=== PATIENT | female | born 1930 | race Caucasian/White ===

== ENCOUNTER 2016-07-17 17:27 | Emergency (ER) | payer MEDICARE, OTHER ==
[~2016-07-17] VITALS: Ht 134.6 cm; Wt 63.6 kg
[~2016-07-17 17:27] MED LIST: ATEN100T PO; DULO20CA17 PO; EZET10TA3 PO; MTF1000T PO; TRAM50TA2 PO
[2016-07-17 17:40] VITALS: Ht 134.6 cm; Wt 63.6 kg
[2016-07-17] MEDS ORDERED: SOD CHLORIDE 0.9% 1,000 ML IV STA (18:07)
[2016-07-17 18:29] LABS: ADD SCAN DIFF NO
[2016-07-17] MEDS ORDERED: MECLIZINE 12.5 MG TAB PO ONE (18:30)
[2016-07-17 18:32] LABS: BASOPHILS % 0.6 % (0.0-2.0); EOSINOPHILS # 0.1 10^3/ul (0.0-0.5); EOSINOPHILS % 2.7 % (0.0-7.0); HEMATOCRIT 34.8 % (37.0-47.0); HEMOGLOBIN 11.4 g/dl (12.0-16.0); LYMPHOCYTES # 0.8 10^3/ul (0.8-2.9); LYMPHOCYTES % 15.8 % (15.0-51.0); MEAN CORPUSCULAR HEMOGLOBIN 27.5 pg (29.0-33.0); MEAN CORPUSCULAR HGB CONC 32.8 g/dl (32.0-37.0); MEAN CORPUSCULAR VOLUME 84.1 fl (82.0-101.0); MEAN PLATELET VOLUME 11.8 fl (7.4-10.4); MONOCYTE # 0.2 10^3/ul (0.3-0.9); MONOCYTES % 4.6 % (0.0-11.0); NEUTROPHILS % 75.3 % (39.0-77.0); PLATELET COUNT 230 10^3/UL (140-415); RED BLOOD COUNT 4.14 10^6/ul (4.20-5.40); RED CELL DISTRIBUTION WIDTH 13.6 % (11.5-14.5); WHITE BLOOD COUNT 5.3 10^3/ul (4.8-10.8)
[2016-07-17 18:41] LABS: CHLORIDE 102 mmol/L (97-110)
[2016-07-17 18:42] LABS: POTASSIUM 5.4 mmol/L (3.5-5.1); SODIUM 136 mmol/L (135-144)
[2016-07-17 18:44] LABS: ANION GAP 12 (8-16); CARBON DIOXIDE 27 mmol/L (21-31); CREATININE 0.84 mg/dl (0.44-1.00)
[2016-07-17 18:45] LABS: BLOOD UREA NITROGEN 23 mg/dl (7-20); CALCIUM 8.6 mg/dl (8.4-10.2); GLUCOSE 208 mg/dl (70-220)
[2016-07-17 18:54] LABS: ADD UMIC YES; URINE BILIRUBIN (Dip) NEGATIVE (NEGATIVE); URINE BLOOD (Dip) NEGATIVE (NEGATIVE); URINE COLOR LT. YELLOW (YELLOW); URINE KETONES (Dip) NEGATIVE (NEGATIVE); URINE LEUKOCYTE ESTERASE (Dip) 1+ (NEGATIVE); URINE NITRITE (Dip) NEGATIVE (NEGATIVE); URINE TOTAL PROTEIN (Dip) NEGATIVE (NEGATIVE); URINE UROBILINOGEN (Dip) 0.2 E.U./dL (0.1-1.0)
[2016-07-17 19:04] LABS: BACTERIA,URINE FEW; URINE RBCS 0-2 /HPF (0)
[2016-07-17 19:04] LABS: TROPONIN-I < 0.012 ng/ml (0.00-0.12)
[2016-07-17] MEDS ORDERED: VALS160T20 PO (19:25)
--- NOTE | 2016-07-17 19:26 | ERD ---
ER Documentation Chief Complaint Date/Time DATE: 07/17/16 TIME: 19:23 Chief Complaint DIZZINESS, NAUSEA HPI Patient is an 86-year-old female with hypertension who presents to the ER with sudden onset constant dizziness described as vertigo for the last 2 hours. Patient denies headache or diplopia denies fever, chest pain, dyspnea, or palpitations. The patient noted that her blood pressure was high at home, and checked her blood sugar and found to be normal. Patient denies previous episodes of the symptoms. Denies falls or loss of balance. ROS All systems reviewed and are negative except as per history of present illness. Medications Home Meds Active Scripts Meclizine Hcl* (Antivert*) 12.5 Mg Tab, 12.5 MG PO Q6H Y for DIZZINESS, #20 TAB Prov:TORRIE SULLIVAN 07/17/16 Reported Medications Valsartan* (Diovan*) 160 Mg Tablet, 160 MG PO DAILY, TAB 07/17/16 Duloxetine Hcl* (Duloxetine Hcl*) 20 Mg Capsule.dr, 20 MG PO DAILY, #60 08/15/15 Atenolol* (Atenolol*) 100 Mg Tablet, 150 MG PO DAILY, #135 08/15/15 Ezetimibe* (Zetia*) 10 Mg Tablet, 10 MG PO HS, TAB 08/15/15 Metformin* (Glucophage*) 1,000 Mg Tablet, 1000 MG PO BID, #60 TAB 08/15/15 Discontinued Scripts Tramadol HCl (Tramadol HCl) 50 Mg Tablet, 50 MG PO Q6 Y for PAIN, #12 TAB Prov:ANDRZEJ MA PA-C 02/03/16 Tramadol HCl (Tramadol HCl) 50 Mg Tablet, 50 MG PO Q6, #10 TAB Prov:SHINE FONSECA MD 08/15/15 Allergies Allergies: Coded Allergies: aspirin (Verified Allergy, Severe, 07/17/16) PMhx/Soc Past medical history: Hypertension, diabetes Past surgical history: None Social history: No tobacco or alcohol History of Surgery: Yes (cataract surgery) Hx Neurological Disorder: No Hx Respiratory Disorders: No Hx Cardiac Disorders: No Hx Psychiatric Problems: No Hx Miscellaneous Medical Probl: Yes (diabetes mellitus type 2, hypertension) Hx Alcohol Use: No Hx Substance Use: No Hx Tobacco Use: No Smoking Status: Unknown if ever smoked FmHx Past medical history: Hypertension, diabetes Past surgical history: Social history: Denies tobacco or alcohol Family History: No diabetes Physical Exam Vitals Vital Signs Date Time Temp Pulse Resp B/P Pulse Ox O2 Delivery O2 Flow Rate FiO2 07/17/16 17:40 97.7 69 18 177/65 100 Physical Exam Const: Alert, oriented, no acute distress Head: Atraumatic Eyes: Normal Conjunctiva ENT: Normal External Ears, Nose and Mouth. Neck: Full range of motion.. No JVD. No meningismus. Resp: Clear to auscultation bilaterally Cardio: Regular rate and rhythm, no murmurs Abd: Soft, non tender, non distended. Normal bowel sounds Skin: No petechiae or rashes Back: No midline or flank tenderness Ext: No cyanosis, or edema Neur: Awake and alert. Cranial nerves II through XII intact, no nystagmus, strength and sensation intact in 4 extremities, no pronator drift, no dysmetria. Negative Romberg Psych: Normal Mood and Affect Result Diagram: 07/17/16 1915 07/17/16 1810 Results 24 hrs Laboratory Tests Test 07/17/16 18:10 07/17/16 18:30 07/17/16 19:15 Anion Gap 12 Blood Urea Nitrogen 23mg/dl Calcium Level 8.6mg/dl Carbon Dioxide Level 27mmol/L Chloride Level 102mmol/L Creatinine 0.84mg/dl Glucose Level 208mg/dl Potassium Level 5.4mmol/L Sodium Level 136mmol/L Troponin I < 0.012ng/ml Urine Bacteria FEW Urine Bilirubin NEGATIVE Urine Clarity CLEAR Urine Color LT. YELLOW Urine Epithelial Cells FEW Urine Glucose 0.5%% Urine Hemoglobin NEGATIVE Urine Ketones NEGATIVE Urine Leukocyte Esterase 1+ Urine Microscopic RBC 0-2/HPF Urine Microscopic WBC 0-2/HPF Urine Nitrite NEGATIVE Urine Specific [place] 1.010 Urine Total Protein NEGATIVE Urine Urobilinogen 0.2 E.U./dL Urine pH 6.5 Basophils # 0.010^3/ul Basophils % 0.6% Eosinophils # 0.110^3/ul Eosinophils % 2.7% Hematocrit 34.8% Hemoglobin 11.4g/dl Lymphocytes # 0.810^3/ul Lymphocytes % 15.8% Mean Corpuscular Hemoglobin 27.5pg Mean Corpuscular Hemoglobin Concent 32.8g/dl Mean Corpuscular Volume 84.1fl Mean Platelet Volume 11.8fl Monocytes # 0.210^3/ul Monocytes % 4.6% Neutrophils # 4.010^3/ul Neutrophils % 75.3% Nucleated Red Blood Cells # 0.010^3/ul Nucleated Red Blood Cells % 0.0/100WBC Platelet Count 35096^3/UL Red Blood Count 4.1410^6/ul Red Cell Distribution Width 13.6% White Blood Count 5.310^3/ul Current Medications Medications (Trade) Dose Ordered Sig/Loulou Route PRN Reason Start Time Stop Time Status Last Admin Dose Admin Sodium Chloride (NS) 1,000 ml @ 1,000 mls/hr Q1H STAT IV 07/17/16 18:07 07/17/16 19:06 DC 07/17/16 18:23 Meclizine HCl (Antivert) 25 mg ONCE ONCE PO 07/17/16 18:30 07/17/16 18:31 DC 07/17/16 18:22 Procedures/MDM EKG: Time 1839, rate 63, normal sinus rhythm, normal axis and intervals, left atrial enlargement, no ischemic ST-T wave changes, no ectopy. MDM: 86-year-old female presents with 2 hours of dizziness described alternately as vertigo and lightheadedness, as well as sense of balance being off. Patient states symptoms are worse with standing or movement of head. Blood pressure was slightly elevated on arrival. Patient had a normal neurological examination. Patient was given meclizine and IV fluids, and on reassessment symptoms have completely resolved. Blood pressure remains elevated. There are no signs of end-organ damage. Labs and EKG are unremarkable. I will discharge patient home with prescription for meclizine and advise close follow-up with PMD in the next 1-2 days for blood pressure recheck. Advise return precautions for recurrence of symptoms or worsening symptoms Departure Diagnosis: Primary Impression: Dizziness Additional Impression: Hypertension Condition: TORRIE Smith Jul 17, 2016 19:26
[2016-07-17] MEDS ORDERED: MECL12.574 PO (19:57)
[2016-07-17 20:25] VITALS: BP 196/100; PULSE 76; RESP 17; TEMP 97.9
== END 2016-07-17 20:30 | disposition home or self-care (01) ==
LOC: E/R 17:27
DX: R42 Dizziness and giddiness (principal); I10 Essential (primary) hypertension; E11.9 Type 2 diabetes mellitus without complications; Z79.84 Long term (current) use of oral hypoglycemic drugs
CPT/HCPCS: 36415; 80048; 81001; 84484; 85025; 93005; 99284; J7030; 81003

== ENCOUNTER 2018-01-31 14:29 | Emergency (ER) | END 2018-01-31 20:00 | disposition home or self-care (01) ==

== ENCOUNTER 2018-02-05 17:25 | Emergency (ER) | END 2018-02-05 19:53 | disposition home or self-care (01) ==